=== PATIENT | male | born 1950 | race African-American/Black ===

== ENCOUNTER 2020-09-20 20:57 | Emergency (ER) | payer MEDICARE, BC ==
[~2020-09-20 20:57] MED LIST: Calcium Chloride 1 GM/10 ML Abboject SYRINGE ONE; EPINEPHrine 1 MG/10 ML Abboject SYRINGE ONE; Sodium Bicarb 50 MEQ/50 ML Abboject 8.4% SYRINGE ONE
[2020-09-20] MEDS ORDERED: Sodium Bicarb 50 MEQ/50 ML Abboject 8.4% SYRINGE ONE (21:05)
== END 2020-09-20 21:09 | disposition expired ==
LOC: ERS 20:57 → EDBD 20:57 → ERS 21:09
DX: I46.9 Cardiac arrest, cause unspecified (principal)
CPT/HCPCS: 36556; 92950; 96374; 96375; J0171